=== PATIENT | female | born 1980 | race American Indian/Alaskan Native ===

== ENCOUNTER 2019-05-22 07:03 | Emergency (ER) | payer MEDICAID ==
[2019-05-22] MEDS ORDERED: ASPIRIN PO ONE (07:31)
--- NOTE | 2019-05-22 08:11 | XRay Report ---
PA AND LATERAL CXR HISTORY: Pain. COMPARISON: None FINDINGS: Cardiomediastinal silhouette: Normal cardiac size. Normal mediastinal contours. Lungs: Normal expansion. Normal lung aeration. No pleural effusions. No pneumothorax. Pulmonary vascularity: Normal. Support hardware: None. Additional findings: None. IMPRESSION: Normal chest. Signer Name: Brock Mcmullen MD Signed: 05/22/2019 8:07 AM Workstation Name: [id number]
[2019-05-22 08:34] LABS: Basophils # (Auto) 0.2 K/mm3 (0.0-0.1); Basophils % (Auto) 2.7 % (0.0-1.8); Eosinophils % (Auto) 0.6 % (0.0-4.3); Hematocrit 33.4 % (30.3-42.9); Hemoglobin 11.1 gm/dl (10.1-14.3); Lymphocytes # (Auto) 2.2 K/mm3 (1.2-5.4); Lymphocytes % (Auto) 36.6 % (13.4-35.0); Mean Corpuscular HGB Conc 33 % (30-34); Mean Corpuscular Volume 75 fl (79-97); Monocytes # (Auto) 0.4 K/mm3 (0.0-0.8); Monocytes % (Auto) 6.9 % (0.0-7.3); Platelet Count 255 K/mm3 (140-440); Red Blood Count 4.43 M/mm3 (3.65-5.03); Red Cell Distribution Width 16.3 % (13.2-15.2)
--- NOTE | 2019-05-22 08:37 | Emergency Department Report ---
ED Chest Pain HPI - General Chief Complaint: Chest Pain Stated Complaint: CHEST PAIN Time Seen by Provider: 05/22/19 08:19 Source: patient Mode of arrival: Wheelchair Limitations: No Limitations - History of Present Illness Initial Comments: 38-year-old -[place] female presents to the emergency department via EMS from work with complaint of some midsternal sharp chest pain. It started just as the patient got to work but worsened while she was working. She says that they checked her blood pressure at work and it was elevated at about 175/100 and then the ambulance was called. She did not receive anything for her symptoms prior to arrival. She has a past medical history of hypertension. No recent travel or sick contacts at home. She denies any tobacco or illicit drug use. No family history of early cardiac disease or events. - Related Data Home Medications Medication Instructions Recorded Confirmed Last Taken Vits96/Iron Fum/Folic 1 each PO QDAY 08/07/13 11/16/13 10/21/13 [ Tablet] Previous Rx's Medication Instructions Recorded Last Taken Type Labetalol [Labetalol 100mg TAB] 200 mg PO BID #60 tablet 11/17/13 Unknown Rx Cyclobenzaprine HCl [Flexeril 5 MG 5 mg PO TID PRN #10 tablet 12/19/13 Unknown Rx TAB] DOXYCYCLINE Hyclate [Vibramycin 100 mg PO BID #20 capsule 01/28/14 Unknown Rx CAP] HYDROcodone/APAP 7.5-325 [[place] 1 each PO Q6HR PRN #14 tablet 01/28/14 Unknown Rx 7.5-325 mg TAB] Hyoscyamine Subl [Levsin Sl] 0.125 mg SL Q4HR PRN #14 tablet 01/28/14 Unknown Rx Ondansetron [Zofran Odt] 4 mg PO Q4-6H PRN #14 tab.rapdis 01/28/14 Unknown Rx Allergies Allergy/AdvReac Type Severity Reaction Status Date / Time latex Allergy Rash Verified 01/28/14 10:05 magnesium Allergy Rash Verified 01/28/14 10:05 Sulfa (Sulfonamide Allergy Rash Verified 01/28/14 10:05 Antibiotics) Paper tape Allergy Unknown Uncoded 01/28/14 10:05 Heart Score - HEART Score History: Slightly suspicious EKG: Normal Age: < 45 Risk factors: No known risk factors Troponin: < normal limit HEART Score: 0 - Critical Actions Critical Actions: 0-3 pts:0.9-1.7%risk of adverse cardiac event.Candidate for discharge ED Review of Systems ROS: Stated complaint: CHEST PAIN Other details as noted in HPI Comment: All other systems reviewed and negative Constitutional: denies: chills, fever Eyes: denies: eye pain, vision change ENT: denies: ear pain, throat pain Respiratory: denies: cough, shortness of breath Cardiovascular: chest pain. denies: palpitations, edema Gastrointestinal: denies: abdominal pain, vomiting Genitourinary: denies: dysuria, discharge Musculoskeletal: denies: back pain, arthralgia Skin: denies: rash, lesions Neurological: denies: headache, weakness ED Past Medical Hx - Past Medical History Previous Medical History?: Yes Hx Hypertension: Yes (with ) Hx Heart Attack/AMI: No Hx Congestive Heart Failure: No Hx Diabetes: No Hx Deep Vein Thrombosis: No Hx Pulmonary Embolism: No Hx Liver Disease: No Hx Renal Disease: No Hx Sickle Cell Disease: No Hx Headaches / Migraines: No Hx Seizures: No Hx Asthma: No Hx COPD: No Hx Tuberculosis: No Hx HIV: No - Surgical History Past Surgical History?: Yes Hx Cholecystectomy: Yes - Social History Smoking Status: Never Smoker Substance Use Type: None - Medications Home Medications: Home Medications Medication Instructions Recorded Confirmed Last Taken Type Vits96/Iron Fum/Folic 1 each PO QDAY 08/07/13 11/16/13 10/21/13 History [ Tablet] Labetalol [Labetalol 100mg TAB] 200 mg PO BID #60 tablet 11/17/13 Unknown Rx Cyclobenzaprine HCl [Flexeril 5 MG 5 mg PO TID PRN #10 tablet 12/19/13 Unknown Rx TAB] DOXYCYCLINE Hyclate [Vibramycin 100 mg PO BID #20 capsule 01/28/14 Unknown Rx CAP] HYDROcodone/APAP 7.5-325 [[place] 1 each PO Q6HR PRN #14 tablet 01/28/14 Unknown Rx 7.5-325 mg TAB] Hyoscyamine Subl [Levsin Sl] 0.125 mg SL Q4HR PRN #14 tablet 01/28/14 Unknown Rx Ondansetron [Zofran Odt] 4 mg PO Q4-6H PRN #14 tab.rapdis 01/28/14 Unknown Rx ED Physical Exam - General Limitations: No Limitations - Other Other exam information: GENERAL: The patient is well-developed well-nourished. HENT: Normocephalic. Atraumatic. Patient has moist mucous membranes. EYES: Extraocular motions are intact. NECK: Supple. Trachea is midline. CHEST/LUNGS: Clear to auscultation. There is no respiratory distress noted. HEART/CARDIOVASCULAR: Regular. There is no tachycardia. There is no murmur. ABDOMEN: Abdomen is soft, nontender. Patient has normal bowel sounds. There is no abdominal distention. SKIN: Skin is warm and dry. NEURO: The patient is awake, alert, and oriented. The patient is cooperative. The patient has no focal neurologic deficits. Normal speech. MUSCULOSKELETAL: There is no tenderness or deformity. There is no limitation range of motion. There is no evidence of acute injury. ED Course Vital Signs 05/22/19 05/22/19 05/22/19 07:28 08:26 08:30 Temperature 98.2 F Pulse Rate 84 71 77 Respiratory 18 13 14 Rate Blood Pressure 146/84 144/84 O2 Sat by Pulse 98 98 Oximetry 05/22/19 05/22/19 05/22/19 08:46 09:45 10:00 Temperature Pulse Rate 73 71 69 Respiratory 15 27 H 20 Rate Blood Pressure 141/82 129/65 112/61 O2 Sat by Pulse 97 96 97 Oximetry 05/22/19 05/22/19 05/22/19 10:15 10:45 11:15 Temperature Pulse Rate 71 73 81 Respiratory 19 19 23 Rate Blood Pressure 112/61 100/47 104/57 O2 Sat by Pulse 99 98 97 Oximetry 05/22/19 05/22/19 05/22/19 11:45 12:01 12:45 Temperature 98.2 F Pulse Rate 67 67 Respiratory 21 16 Rate Blood Pressure 124/72 115/67 O2 Sat by Pulse 100 97 97 Oximetry CRISTIAN score - Cristian Score Age > 65: (0) No Aspirin use within the Past 7 Days: (0) No 3 or more CAD Risk Factors: (0) No 2 or more Angina events in past 24 hrs: (0) No Known CAD with more than 50% Stenosis: (0) No Elevated Cardiac Markers: (0) No ST Deviation Greater than 0.5mm: (0) No CRISTAIN Score: 0 ED Medical Decision Making - Lab Data Result diagrams: 05/22/19 08:24 05/22/19 08:24 - EKG Data -: EKG Interpreted by Me EKG shows normal: sinus rhythm, axis, intervals, QRS complexes, ST-T waves Rate: normal - EKG Data When compared to previous EKG there are: previous EKG unavailable Interpretation: normal EKG - Radiology Data Radiology results: image reviewed interpreted by me: Chest x-ray does not show any acute process. There are no pleural effusions, obvious pneumonia and there is no pneumothorax. - Medical Decision Making This patient presents to the emergency department with the complaint of some midsternal chest pain with some elevated blood pressure that started while she was at work. Her vital signs, including her blood pressure, have been stable throughout her ED course. EKG did not show any signs of ST elevation PA, significant ischemia or dysrhythmia. Chest x-ray did not show any pleural effusions, pneumothorax, focal consolidation, pneumonia, or any other acute process. The patient's labs have been unremarkable including negative troponins 2 this far. Patient is low on the well's score criteria for concern for thromboembolism and she is negative on the pulmonary embolism rule out criteria. The patient is also very low on the heart score and CRISTIAN score. She was given a single [place] pill for pain and had great improvement in her symptoms. For all these reasons, the patient appears safe for discharge home at this time. As per our protocol, the patient will be contacted by [facility] for close outpatient follow-up in the next 48 hours. The patient has otherwise been instructed to return to the emergency Department with any worsening of her symptoms or any acute distress. - Differential Diagnosis PA, Costochondritis, pneumonia, GERD Critical Care Time: No Critical care attestation.: If time is entered above; I have spent that time in minutes in the direct care of this critically ill patient, excluding procedure time. ED Disposition Clinical Impression: Chest pain Qualifiers: Chest pain type: unspecified Qualified Code(s): R07.9 - Chest pain, unspecified Disposition: DC-01 TO HOME OR SELFCARE Is pt being admited?: No Condition: Stable Instructions: Chest Pain (ED) Additional Instructions: Please follow-up with your primary care physician in the next few days. You should be contacted by someone at [facility] for follow-up outpatient appointment within the next 48 hours. Return to the emergency Department with any worsening of your symptoms or any acute distress. [facility] - [facility]-3 Days Time of Disposition: 11:47
[2019-05-22] MEDS ORDERED: NORCO 5/325 PO ONE (08:47)
[2019-05-22 09:46] LABS: BUN/Creatinine Ratio 13; Blood Urea Nitrogen 9 mg/dL (7-17); Calcium 9.1 mg/dL (8.4-10.2); Hemolysis Index 0
[2019-05-22] MEDS ORDERED: ZOFRAN ODT ONE (10:26)
[2019-05-22] MEDS ORDERED: ZOFRAN ODT PO ONE (10:35)
[2019-05-22 12:12] VITALS: BP 115/67
== END 2019-05-22 12:45 | disposition home or self-care (01) ==
LOC: ED 07:03
DX: R07.2 Precordial pain (principal); I10 Essential (primary) hypertension; Z79.899 Other long term (current) drug therapy; Z91.040 Latex allergy status; Z88.2 Allergy status to sulfonamides; Z88.8 Allergy status to other drugs, medicaments and biological substances; Z90.49 Acquired absence of other specified parts of digestive tract
CPT/HCPCS: 36415; 71046; 80048; 84484; 85025; 93005; 93010; 99284; Q0162